=== PATIENT | female | born 2005 | race African-American/Black ===

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

== ENCOUNTER 2023-01-04 09:56 | Emergency (ER) | payer OTHER ==
[~2023-01-04] VITALS: Ht 157.5 cm; Wt 56.2 kg
[2023-01-04 10:04] VITALS: BP 117/77; TEMP 98
== END 2023-01-04 10:26 | disposition home or self-care (01) ==
LOC: ED 09:56
DX: Z53.21 Procedure and treatment not carried out due to patient leaving prior to being seen by health care provider (principal)
CPT/HCPCS: 99281

== ENCOUNTER 2023-01-04 10:30 | Outpatient (CLI) | payer OTHER | END 2023-01-04 18:38 | disposition home or self-care (01) | LOC: LABW 10:30 | PROVIDERS: ATTEND Family Medicine | DX: O03.9 Complete or unspecified spontaneous abortion without complication (principal) | CPT/HCPCS: 36415; 84702 ==